=== PATIENT | male | born 1975 | race Caucasian/White ===

== ENCOUNTER 2022-02-04 08:10 | Emergency (ER) | payer OTHER ==
[~2022-02-04] VITALS: Ht 177.8 cm; Wt 88.5 kg
== END 2022-02-04 10:16 | disposition home or self-care (01) ==
LOC: ED 08:10
DX: T63.451A Toxic effect of venom of hornets, accidental (unintentional), initial encounter (principal)
CPT/HCPCS: 36415; 80053; 84443; 85025; 99283